=== PATIENT | male | born 1955 | race Caucasian/White ===

== ENCOUNTER → 2023-11-25 10:43 | Outpatient (REF) | payer MEDICARE, OTHER, SELFPAY | LOC: HWLAB 10:43 | PROVIDERS: ATTENDING PHYSICIAN Internal Medicine | DX: M25.552 Pain in left hip (principal) | CPT/HCPCS: 73502 ==

== ENCOUNTER → 2023-12-18 11:39 | Outpatient (REF) | payer MEDICARE, OTHER, SELFPAY | LOC: PAVMRI 11:39 | PROVIDERS: ATTENDING PHYSICIAN Internal Medicine | DX: M54.16 Radiculopathy, lumbar region (principal); M54.17 Radiculopathy, lumbosacral region | CPT/HCPCS: 72148 ==